=== PATIENT | female | born 1985 | race American Indian/Alaskan Native ===

== ENCOUNTER 2018-12-15 19:56 | Emergency (ER) | payer OTHER, MEDICAID, SELFPAY ==
[2018-12-15 20:00] VITALS: BP 139/85; PULSE 100; RESP 18; TEMP 36.7; O2SAT 98
--- NOTE | 2018-12-15 20:12 | DI.RAD.S_ITS ---
PROCEDURE: XR TIBIA FIBULA RT 2V INDICATIONS: bruising TECHNIQUE: 2 views of the tibia and fibula were acquired. COMPARISON: None. FINDINGS: Bones: No acute fracture or dislocation. Internal fixation hardware noted within the medial malleolus and along the distal right fibula, without evidence of acute or complication. Soft tissues: Mild diffuse soft tissue swelling surrounding the right tibia and fibula. IMPRESSION: Mild diffuse soft tissue swelling surrounding the right tibia and fibula. Dictated by: Bran Rivera M.D. on 12/15/2018 at 21:27 Approved by: Bran Rivera M.D. on 12/15/2018 at 21:30
--- NOTE | 2018-12-15 20:13 | ED.LOWEXIN ---
HPI - Extremity Injury (Lower) <Jacquelin Owens PA-C - Last Filed: 12/15/18 22:20> General Chief Complaint: Extremity Injury, Lower Stated Complaint: glf, left thomas pain Time Seen by Provider: 12/15/18 20:05 Source: patient Mode of arrival: ambulatory Limitations: no limitations History of Present Illness HPI Narrative: This 33-year-old female slipped on her right leg a few days ago and came down with her left thomas and ankle area on a rock. She states that she has had pain since then, but has been able to walk on that leg. She states that she has had progressively worsening swelling however and is concerned about the hardware in her ankle that was placed a few years ago after fracture. She states that the pressure from the swelling over the bruised area feels very tense. She denies any other injury. She denies any calf pain or history of blood clots. She denies any possibility of . She states that she always has some pain and swelling around the left ankle area since her surgery Related Data Home Medications Medication Instructions Recorded Confirmed . (No Home Medications) #0 01/25/04 Allergies Allergy/AdvReac Type Severity Reaction Status Date / Time No Known Drug Allergies Allergy Verified 12/15/18 20:02 Review of Systems <Jacquelin Owens PA-C - Last Filed: 12/15/18 22:20> Review of Systems ROS Unobtainable: All systems reviewed & are unremarkable except as noted in HPI and below PFSH <Jacquelin Owens PA-C - Last Filed: 12/15/18 22:20> Medical History Edema (Chronic) Status post tubal ligation (Resolved) Surgical History Status post (Resolved) Status post ORIF of fracture of ankle (Resolved) Social History Smoking Status: Current some day smoker Social History Smoking Status: Current some day smoker Exam <DIXIE Parra Last Filed: 12/15/18 22:20> Narrative Exam Narrative: GENERAL APPEARANCE: Patient sitting comfortably, in no distress. LUNGS: Clear to auscultation bilaterally. HEART: Rate and rhythm regular without murmur, normal S1 and S2, no S3 or S4. DERMATOLOGIC: Left mid to inferior thomas covered with deep purple ecchymoses, circumferential around the mid point, exquisitely tender MUSCULOSKELETAL: Effusion over the left thomas to ankle. Exquisitely tender over the areas with ecchymoses down to the medial ankle. Full range of motion of the left knee without tenderness. Full range of motion of the ankle nonweightbearing without tenderness. No tenderness over the foot or toes, full range of motion of the toes. NEUROVASCULAR: Left pedal pulses are intact, toes are warm and pink, sensation grossly Initial Vital Signs Initial Vital Signs: Vital Signs Temperature 98.0 F 12/15/18 20:00 Pulse Rate 100 H 12/15/18 20:00 Respiratory Rate 18 12/15/18 20:00 Blood Pressure 139/85 12/15/18 20:00 Pulse Oximetry 98 12/15/18 20:00 <DO Lorraine Umanzor Last Filed: 12/15/18 22:32> Initial Vital Signs Initial Vital Signs: Vital Signs Temperature 98.0 F 12/15/18 20:00 Pulse Rate 100 H 12/15/18 20:00 Respiratory Rate 18 12/15/18 20:00 Blood Pressure 139/85 12/15/18 20:00 Pulse Oximetry 98 12/15/18 20:00 Course <Jacquelin Owens PA-C - Last Filed: 12/15/18 22:20> Orders Ordered: ED Orders 12/15/18 20:12 XR ankle LT 2V Stat XR tibia fibula LT 2V Stat Discontinued Medications Hydrocodone Bitart/Acetaminophen ([place] 5/325) 1 tab PO NOW ONE Stop: 12/15/18 20:21 Last Admin: 12/15/18 20:25 Dose: 1 tab Ibuprofen (Advil) 800 mg PO NOW ONE Stop: 12/15/18 20:21 Last Admin: 12/15/18 20:25 Dose: 800 mg Vital Signs - 8 hr 12/15/18 20:00 12/15/18 22:03 Temperature 98.0 F Pulse Rate 100 H 94 H Respiratory Rate 18 14 Blood Pressure 139/85 Blood Pressure [Right Arm] 138/88 Pulse Oximetry 98 97 <DO Lorraine Umanzor Last Filed: 12/15/18 22:32> Orders Ordered: ED Orders 12/15/18 20:12 XR ankle LT 2V Stat XR tibia fibula LT 2V Stat Discontinued Medications Hydrocodone Bitart/Acetaminophen ([place] 5/325) 1 tab PO NOW ONE Stop: 12/15/18 20:21 Last Admin: 12/15/18 20:25 Dose: 1 tab Ibuprofen (Advil) 800 mg PO NOW ONE Stop: 12/15/18 20:21 Last Admin: 12/15/18 20:25 Dose: 800 mg Vital Signs - 8 hr 12/15/18 20:00 12/15/18 22:03 Temperature 98.0 F Pulse Rate 100 H 94 H Respiratory Rate 18 14 Blood Pressure 139/85 Blood Pressure [Right Arm] 138/88 Pulse Oximetry 98 97 MDM - Extremity Injury (Lower) <Jacquelin Owens PA-C - Last Filed: 12/15/18 22:20> Imaging Data tib fib and ankle: Radiologist's impression: 24 Jacquelin Owens PA-C Find Patient Imaging Luba Isaac 33 F 1985 ACTIVITY DATE EXAM STATUS AUTHOR 12/15/18 20:12 Signed Bran Rivera 12/15/18 20:[address] [address] XRay Report Signed Patient: Luba Isaac TMR#: [id number] : 1985Acct:[id number] Age/Sex: 33 / FDate of Service: 12/15/18 Loc: ED Accession Number: [id number] Procedure: XR ankle LT 2V Ordering Provider: Jacquelin Owens P.A-C PROCEDURE: XR ANKLE LT 2V INDICATIONS: bruising TECHNIQUE: 2 views of the ankle were acquired. COMPARISON: [facility], CR, XR TIBIA FIBULA LT 2V, 12/15/2018, 20:21. [facility], CR, XR TIBIA FIBULA LEFT, 12/11/2018, 21:12. FINDINGS: Bones: No fractures or dislocations. Ankle mortise is normally aligned. Internal fixation hardware noted within the left medial malleolus and along the left distal fibula, without evidence of acute or complication. There is a small plantar calcaneal spur. Soft tissues: There is mild soft tissue swelling surrounding the left ankle and the imaged distal left lower extremity. IMPRESSION: Mild soft tissue swelling of the left ankle. No acute osseous abnormality of the left ankle identified. Dictated by: Bran Rivera M.D. on 12/15/2018 at 21:55 Approved by: Bran Rivera M.D. on 12/15/2018 at 21:58 24 Jacquelin Owens PA-C Find Patient Imaging Luba Isaac 33 F 1985 ACTIVITY DATE EXAM STATUS AUTHOR 12/15/18 20:12 Signed Bran Rivera 12/15/18 20:[address] [address] XRay Report Signed Patient: Luba Isaac TMR#: [id number] : 1985Acct:[id number] Age/Sex: 33 / FDate of Service: 12/15/18 Loc: ED Accession Number: [id number] Procedure: XR ankle LT 2V Ordering Provider: Jacquelin Owens P.A-C PROCEDURE: XR ANKLE LT 2V INDICATIONS: bruising TECHNIQUE: 2 views of the ankle were acquired. COMPARISON: [facility], CR, XR TIBIA FIBULA LT 2V, 12/15/2018, 20:21. [facility], CR, XR TIBIA FIBULA LEFT, 12/11/2018, 21:12. FINDINGS: Bones: No fractures or dislocations. Ankle mortise is normally aligned. Internal fixation hardware noted within the left medial malleolus and along the left distal fibula, without evidence of acute or complication. There is a small plantar calcaneal spur. Soft tissues: There is mild soft tissue swelling surrounding the left ankle and the imaged distal left lower extremity. IMPRESSION: Mild soft tissue swelling of the left ankle. No acute osseous abnormality of the left ankle identified. Dictated by: Bran Rivera M.D. on 12/15/2018 at 21:55 Approved by: Bran Rivera M.D. on 12/15/2018 at 21:58 Discharge Plan Departure Patient Disposition: Home Clinical Impression: Contusion of left lower leg Qualifiers: Encounter type: initial encounter Qualified Code(s): S80.12XA - Contusion of left lower leg, initial encounter Discharge Date/Time: 12/15/18 22:16 Interventions: ED Discharge Assessment Last Done: 12/15/18 22:09 Instructions: DI for Contusion Activity Restrictions/Additional Instructions: Please return if you have any acutely worsening swelling or new symptoms such as numbness or color change in your foot or toes. There was no broken bone found on your x-rays tonight, and your hardware appears to be in place. I think the swelling in your thomas is in the soft tissues, and you likely have a hematoma (blood collection) in the soft tissues, which typically absorb on its own. Please try to elevate the leg as much as you can. Please keep a compression wrap on especially when you are up and about. Take ibuprofen 800 mg every 8 hr to help with pain and inflammation, and you can add Tylenol in addition as needed. Please follow up with your orthopedist next week for recheck Prescriptions: No Action . (No Home Medications) Qty: 0 RF: 0 Referrals: Emilia Collins [Other] <Gideon Alvarez DO - Last Filed: 12/15/18 22:32> [facility] Steven Attestation: I was available for consultation during this patient's emergency department encounter
[2018-12-15] MEDS: HYDROCODONE/ACET 5/325 TABLET 1 TAB PO (20:25)
[2018-12-15] MEDS: IBUPROFEN 400 MG TABLET 800 MG PO (20:25)
--- NOTE | 2018-12-15 20:28 | ED_ITS ---
HPI - Extremity Injury (Lower) <Jacquelin Owens PA-C - Last Filed: 12/15/18 22:20> General Chief Complaint: Extremity Injury, Lower Stated Complaint: glf, left thomas pain Time Seen by Provider: 12/15/18 20:05 Source: patient Mode of arrival: ambulatory Limitations: no limitations History of Present Illness HPI Narrative: This 33-year-old female slipped on her right leg a few days ago and came down with her left thomas and ankle area on a rock. She states that she has had pain since then, but has been able to walk on that leg. She states that she has had progressively worsening swelling however and is concerned about the hardware in her ankle that was placed a few years ago after fracture. She states that the pressure from the swelling over the bruised area feels very tense. She denies any other injury. She denies any calf pain or history of blood clots. She denies any possibility of . She states that she always has some pain and swelling around the left ankle area since her surgery Related Data Home Medications Medication Instructions Recorded Confirmed . (No Home Medications) #0 01/25/04 Allergies Allergy/AdvReac Type Severity Reaction Status Date / Time No Known Drug Allergies Allergy Verified 12/15/18 20:02 Review of Systems <Jacquelin Owens PA-C - Last Filed: 12/15/18 22:20> Review of Systems ROS Unobtainable: All systems reviewed & are unremarkable except as noted in HPI and below PFSH <Jacquelin Owens PA-C - Last Filed: 12/15/18 22:20> Medical History Edema (Chronic) Status post tubal ligation (Resolved) Surgical History Status post (Resolved) Status post ORIF of fracture of ankle (Resolved) Social History Smoking Status: Current some day smoker Social History Smoking Status: Current some day smoker Exam <DIXIE Parra Last Filed: 12/15/18 22:20> Narrative Exam Narrative: GENERAL APPEARANCE: Patient sitting comfortably, in no distress. LUNGS: Clear to auscultation bilaterally. HEART: Rate and rhythm regular without murmur, normal S1 and S2, no S3 or S4. DERMATOLOGIC: Left mid to inferior thomas covered with deep purple ecchymoses, circumferential around the mid point, exquisitely tender MUSCULOSKELETAL: Effusion over the left thomas to ankle. Exquisitely tender over the areas with ecchymoses down to the medial ankle. Full range of motion of the left knee without tenderness. Full range of motion of the ankle nonweightbearing without tenderness. No tenderness over the foot or toes, full range of motion of the toes. NEUROVASCULAR: Left pedal pulses are intact, toes are warm and pink, sensation grossly Initial Vital Signs Initial Vital Signs: Vital Signs Temperature 98.0 F 12/15/18 20:00 Pulse Rate 100 H 12/15/18 20:00 Respiratory Rate 18 12/15/18 20:00 Blood Pressure 139/85 12/15/18 20:00 Pulse Oximetry 98 12/15/18 20:00 <DO Lorraine Umanzor Last Filed: 12/15/18 22:32> Initial Vital Signs Initial Vital Signs: Vital Signs Temperature 98.0 F 12/15/18 20:00 Pulse Rate 100 H 12/15/18 20:00 Respiratory Rate 18 12/15/18 20:00 Blood Pressure 139/85 12/15/18 20:00 Pulse Oximetry 98 12/15/18 20:00 Course <Jacquelin Owens PA-C - Last Filed: 12/15/18 22:20> Orders Ordered: ED Orders 12/15/18 20:12 XR ankle LT 2V Stat XR tibia fibula LT 2V Stat Discontinued Medications Hydrocodone Bitart/Acetaminophen ([place] 5/325) 1 tab PO NOW ONE Stop: 12/15/18 20:21 Last Admin: 12/15/18 20:25 Dose: 1 tab Ibuprofen (Advil) 800 mg PO NOW ONE Stop: 12/15/18 20:21 Last Admin: 12/15/18 20:25 Dose: 800 mg Vital Signs - 8 hr 12/15/18 20:00 12/15/18 22:03 Temperature 98.0 F Pulse Rate 100 H 94 H Respiratory Rate 18 14 Blood Pressure 139/85 Blood Pressure [Right Arm] 138/88 Pulse Oximetry 98 97 <DO Lorraine Umanzor Last Filed: 12/15/18 22:32> Orders Ordered: ED Orders 12/15/18 20:12 XR ankle LT 2V Stat XR tibia fibula LT 2V Stat Discontinued Medications Hydrocodone Bitart/Acetaminophen ([place] 5/325) 1 tab PO NOW ONE Stop: 12/15/18 20:21 Last Admin: 12/15/18 20:25 Dose: 1 tab Ibuprofen (Advil) 800 mg PO NOW ONE Stop: 12/15/18 20:21 Last Admin: 12/15/18 20:25 Dose: 800 mg Vital Signs - 8 hr 12/15/18 20:00 12/15/18 22:03 Temperature 98.0 F Pulse Rate 100 H 94 H Respiratory Rate 18 14 Blood Pressure 139/85 Blood Pressure [Right Arm] 138/88 Pulse Oximetry 98 97 MDM - Extremity Injury (Lower) <Jacquelin Owens PA-C - Last Filed: 12/15/18 22:20> Imaging Data tib fib and ankle: Radiologist's impression: 24 Jacquelin Owens PA-C Find Patient Imaging Luba Isaac 33 F 1985 ACTIVITY DATE EXAM STATUS AUTHOR 12/15/18 20:12 Signed Bran Rivera 12/15/18 20:[address] [address] XRay Report Signed Patient: Luba Isaac TMR#: [id number] : 1985Acct:[id number] Age/Sex: 33 / FDate of Service: 12/15/18 Loc: ED Accession Number: [id number] Procedure: XR ankle LT 2V Ordering Provider: Jacquelin Owens P.A-C PROCEDURE: XR ANKLE LT 2V INDICATIONS: bruising TECHNIQUE: 2 views of the ankle were acquired. COMPARISON: [facility], CR, XR TIBIA FIBULA LT 2V, 12/15/2018, 20:21. [facility], CR, XR TIBIA FIBULA LEFT, 12/11/2018, 21:12. FINDINGS: Bones: No fractures or dislocations. Ankle mortise is normally aligned. Internal fixation hardware noted within the left medial malleolus and along the left distal fibula, without evidence of acute or complication. There is a small plantar calcaneal spur. Soft tissues: There is mild soft tissue swelling surrounding the left ankle and the imaged distal left lower extremity. IMPRESSION: Mild soft tissue swelling of the left ankle. No acute osseous abnormality of the left ankle identified. Dictated by: Bran Rivera M.D. on 12/15/2018 at 21:55 Approved by: Bran Rivera M.D. on 12/15/2018 at 21:58 24 Jacquelin Owens PA-C Find Patient Imaging Luba Isaac 33 F 1985 ACTIVITY DATE EXAM STATUS AUTHOR 12/15/18 20:12 Signed Bran Rivera 12/15/18 20:[address] [address] XRay Report Signed Patient: Luba Isaac TMR#: [id number] : 1985Acct:[id number] Age/Sex: 33 / FDate of Service: 12/15/18 Loc: ED Accession Number: [id number] Procedure: XR ankle LT 2V Ordering Provider: Jacquelin Owens P.A-C PROCEDURE: XR ANKLE LT 2V INDICATIONS: bruising TECHNIQUE: 2 views of the ankle were acquired. COMPARISON: [facility], CR, XR TIBIA FIBULA LT 2V, 12/15/2018, 20:21. [facility], CR, XR TIBIA FIBULA LEFT, 12/11/2018, 21:12. FINDINGS: Bones: No fractures or dislocations. Ankle mortise is normally aligned. Internal fixation hardware noted within the left medial malleolus and along the left distal fibula, without evidence of acute or complication. There is a small plantar calcaneal spur. Soft tissues: There is mild soft tissue swelling surrounding the left ankle and the imaged distal left lower extremity. IMPRESSION: Mild soft tissue swelling of the left ankle. No acute osseous abnormality of the left ankle identified. Dictated by: Bran Rivera M.D. on 12/15/2018 at 21:55 Approved by: Bran Rivera M.D. on 12/15/2018 at 21:58 Discharge Plan Departure Patient Disposition: Home Clinical Impression: Contusion of left lower leg Qualifiers: Encounter type: initial encounter Qualified Code(s): S80.12XA - Contusion of left lower leg, initial encounter Discharge Date/Time: 12/15/18 22:16 Interventions: ED Discharge Assessment Last Done: 12/15/18 22:09 Instructions: DI for Contusion Activity Restrictions/Additional Instructions: Please return if you have any acutely worsening swelling or new symptoms such as numbness or color change in your foot or toes. There was no broken bone found on your x-rays tonight, and your hardware appears to be in place. I think the swelling in your thomas is in the soft tissues, and you likely have a hematoma (blood collection) in the soft tissues, which typically absorb on its own. Please try to elevate the leg as much as you can. Please keep a compression wrap on especially when you are up and about. Take ibuprofen 800 mg every 8 hr to help with pain and inflammation, and you can add Tylenol in addition as needed. Please follow up with your orthopedist next week for recheck Prescriptions: No Action . (No Home Medications) Qty: 0 RF: 0 Referrals: Emilia Collins [Other] <Gideon Alvarez DO - Last Filed: 12/15/18 22:32> [facility] Attestation: I was available for consultation during this patient's emergency department encounter
[2018-12-15 22:03] VITALS: BP 138/88; PULSE 94; RESP 14; O2SAT 97
== END 2018-12-15 22:16 | disposition home or self-care (01) ==
PROVIDERS: Emergency Provider Internal Medicine
DX: S80.12XA Contusion of left lower leg, initial encounter (principal); W01.0XXA Fall on same level from slipping, tripping and stumbling without subsequent striking against object, initial encounter
CPT/HCPCS: 73590; 73600; 99282; 99283